=== PATIENT | female | born 2000 | race Caucasian/White ===

== ENCOUNTER 2024-05-05 14:43 | Emergency (ER) | payer BC ==
[~2024-05-05] VITALS: Ht 185.4 cm; Wt 77.3 kg
[2024-05-05 14:58] VITALS: BP 111/68; PULSE 115; RESP 20; TEMP 98.8; O2SAT 96
[2024-05-05 15:24] VITALS: O2SAT 96
[2024-05-05] MEDS: NACL 0.9% 1,000 ML IV ONE (15:52)
[2024-05-05] MEDS: ONDANSETRON 4 MG/2 ML VIAL IVP ONE (15:56)
[2024-05-05 16:11] LABS: FLU A ANTIGEN negative (NEGATIVE); FLU B ANTIGEN negative (NEGATIVE)
[2024-05-05] MEDS ORDERED: ONDA-188 SL (16:24)
[2024-05-05 16:41] VITALS: BP 120/63; PULSE 92; RESP 17; TEMP 98.2; O2SAT 99
== END 2024-05-05 16:34 | disposition home or self-care (01) ==
LOC: MED 14:43
DX: A08.4 Viral intestinal infection, unspecified (principal); Z20.822 Contact with and (suspected) exposure to COVID-19; Z79.899 Other long term (current) drug therapy
CPT/HCPCS: 81025; 87426; 87804; 96374; 99283; J2405; J7030; 96361